=== PATIENT | female | born 1990 | race Caucasian/White ===

== ENCOUNTER 2016-11-20 08:57 | Emergency (ER) | payer MEDICAID ==
[~2016-11-20] VITALS: Ht 157.5 cm; Wt 103.3 kg
[2016-11-20] MEDS ORDERED: KETOROLAC 60 MG/2 ML (TORADOL) VIAL IM ONE (09:30)
[2016-11-20 09:47] VITALS: BP 116/58
== END 2016-11-20 09:50 | disposition home or self-care (01) ==
LOC: ED 08:59
DX: L01.01 Non-bullous impetigo (principal); L28.0 Lichen simplex chronicus; J20.9 Acute bronchitis, unspecified; F41.9 Anxiety disorder, unspecified
CPT/HCPCS: 96372; 99283; J1885

== ENCOUNTER 2017-02-08 17:39 | Emergency (ER) | payer MEDICAID ==
[~2017-02-08] VITALS: Ht 157.5 cm; Wt 104.1 kg
[~2017-02-08 17:39] MED LIST: AC325T PO; ACAM333T8 PO; ACET325T38 PO; ALB0.5V INH; ALBU6.7H INH; ALPR2TAB PO; AMPH20TA2 PO; ASPI-158 PO; AZIT250T5 PO; BENZ-22 PO; CEFD300C; CEFD300C PO; CEPH-331 PO; CEPH-507 PO; CEPH500C PO; CODE118S2 PO; DOXY100T41 PO; FLUO40CA PO; FLX20C; HALO5TAB PO; HYDR-33; HYDR-3702 PO; IBP200T PO; IBUP-1772 PO; INDO50CA; INDO50CA PO; LIRA3PEN SQ; LITH300C; LITH450T14 PO; LORA-404; LORA0.5T PO; LTH150C PO; LTH450TCR PO; LURA40TA PO; MINO100C2; MPR22TI TOP; NAPR550T PO; NORG1TAB14 PO; OLAN10TA17 PO; OLAN1CAP5; OXC5T PO; OXYC10TA7 PO; PNV1TABL9 PO; PRCD5U PO; PRD50T GT; PRED20TA PO; TR1C15 TOP; TRAZ100T92; TRAZ150T72 PO; [UNRECOGNIZED DRUG - OTHER]; [UNRECOGNIZED DRUG - OTHER]
--- NOTE | 2017-02-08 17:56 | NUR ---
pt states unable to urinate, went to the bathroom in our lobby
[2017-02-08 18:07] LABS: BASOPHILS % (AUTO) 0 % (0-2); EOSINOPHILS % (AUTO) 0 % (0-4); LYMPHOCYTES # (AUTO) 2.5 X10^3; MEAN CORPUSCULAR HEMOGLOBIN 30.3 PG (26.0-34.0); MEAN CORPUSCULAR HGB CONC 34.8 g/dL (31.0-37.0); MEAN CORPUSCULAR VOLUME 87 FL (80-100); MEAN PLATELET VOLUME 9.7 FL (6.0-9.5); MONOCYTES % (AUTO) 9 % (3-11); NEUTROPHILS # (AUTO) 7.2 X10^3; NEUTROPHILS % (AUTO) 67 % (51-67); PLATELET COUNT 273 10^3uL (150-450); WHITE BLOOD COUNT 10.77 10^3uL (4.0-11.0)
[2017-02-08] MEDS ORDERED: HALOPERIDOL 5 MG/ML (HALDOL) 1 ML AMP IM ONE (18:10)
[2017-02-08] MEDS ORDERED: LORazepam 2 MG/ML (ATIVAN) 1 ML VIAL IM ONE (18:10)
[2017-02-08 18:22] LABS: ALBUMIN 3.6 g/dL (3.4-5.0); ALKALINE PHOSPHATASE 134 U/L (38-126); ANION GAP 15.3 MEQ/L (3-15); BUN/CREATININE RATIO 18 (10-20); CALCULATED IONIZED CALCIUM 4.3 mg/dL (3.8-4.6); TOTAL PROTEIN 6.6 g/dL (6.4-8.5)
--- NOTE | 2017-02-08 18:42 | NUR ---
asks for blanket
[2017-02-08] MEDS ORDERED: LORA1TAB PO (18:47)
[2017-02-08 18:48] VITALS: BP 125/77
[2017-02-08 18:53] LABS: BILIRUBIN,URINE Negative (Negative); COLOR,URINE Yellow; GLUCOSE, URINE (UA) Negative (Negative); LEUKOCYTE ESTERASE ,URINE Negative (Negative); PH,URINE 7.5 (5.0 - 8.0); UROBILINOGEN,URINE 0.2 mg/dL (0.2-1.0)
[2017-02-08 18:54] LABS: CLARITY,URINE Slightly Cloudy
[2017-02-08 19:05] LABS: AMPHETAMINE SCREEN, URINE Positive (Negative); CANNABINOID SCREEN, URINE Negative (Negative); METHAMPHETAMINE SCREEN URINE S POSITIVE (NEGATIVE); OPIATE SCREEN URINE Negative (Negative); PROPOXYPHENE STAT NEGATIVE (NEGATIVE)
== END 2017-02-08 18:51 | disposition home or self-care (01) ==
LOC: ED 17:40
DX: F43.12 Post-traumatic stress disorder, chronic (principal); F41.1 Generalized anxiety disorder
CPT/HCPCS: 36415; 80053; 80307; 81003; 84443; 84703; 85025; 86140; 96372; 99283; G0480; J1630; J2060; 80320; 80329

== ENCOUNTER 2017-02-20 20:32 | Emergency (ER) | payer MEDICAID ==
[~2017-02-20] VITALS: Ht 157.5 cm; Wt 90.9 kg
[~2017-02-20 20:32] MED LIST changes: -CLON1TAB27 PO
--- NOTE | 2017-02-20 20:45 | NUR ---
Pt's mom is here and in the room with pt, she states that the pt just got out of [facility] on Monday
--- NOTE | 2017-02-20 21:02 | NUR ---
Pt's mom is in the room with her at this time, she continues to cry and at times become angry, pt has pulled out her IV, bleeding is controlled, pt then leaves the ED, and goes out the front entrance of the ED. PD was called, pt's mom went out to try and bring pt back in, which she does, pt back in the room and given a dose of Haldol, pt states "Haldol doesn't work for me", ask pt what works, and she stated "Thorazine".
[2017-02-20] MEDS: HALOPERIDOL 5 MG/ML (HALDOL) 1 ML AMP IM ONE ×2 (21:15→21:50)
--- NOTE | 2017-02-20 21:26 | NUR ---
Pt states "I'm not suicidal, I just have suicidal thoughts, I don't feel right, and I just want to feel right". Pt is pacing the floor in the room, crying, and loudly converses with her mom.
--- NOTE | 2017-02-20 21:30 | NUR ---
Pt leaves the room out the front entrance, her mom goes after her, the PD was called to come and look for pt, pt comes back into the lobby of her own accord with her mom, back into the room.
[2017-02-20] MEDS ORDERED: CLON1TAB27 PO (21:33)
[2017-02-20 21:37] LABS: BASOPHILS % (AUTO) 0 % (0-2); EOSINOPHILS % (AUTO) 0 % (0-4); LYMPHOCYTES # (AUTO) 4.5 X10^3; MEAN CORPUSCULAR HEMOGLOBIN 29.8 PG (26.0-34.0); MEAN CORPUSCULAR HGB CONC 34.7 g/dL (31.0-37.0); MEAN CORPUSCULAR VOLUME 86 FL (80-100); MEAN PLATELET VOLUME 9.9 FL (6.0-9.5); MONOCYTES # (AUTO) 1.1 X10^3; MONOCYTES % (AUTO) 6 % (3-11); NEUTROPHILS # (AUTO) 12.1 X10^3; NEUTROPHILS % (AUTO) 68 % (51-67); PLATELET COUNT 294 10^3uL (150-450); WHITE BLOOD COUNT 17.81 10^3uL (4.0-11.0)
[2017-02-20 21:44] LABS: ALBUMIN 3.8 g/dL (3.4-5.0); ALKALINE PHOSPHATASE 151 U/L (38-126); ANION GAP 15.7 MEQ/L (3-15); BUN/CREATININE RATIO 22 (10-20); CALCULATED IONIZED CALCIUM 3.9 mg/dL (3.8-4.6)
[2017-02-20 21:45] LABS: AMPHETAMINE SCREEN, URINE Negative (Negative); CANNABINOID SCREEN, URINE Negative (Negative); METHAMPHETAMINE SCREEN URINE S NEGATIVE (NEGATIVE); OPIATE SCREEN URINE Negative (Negative); PROPOXYPHENE STAT NEGATIVE (NEGATIVE)
--- NOTE | 2017-02-20 21:45 | NUR ---
RN in room with pt, she is pacing the room, RN explains that if she continues to leave, then the Police will be called, and or she will be placed in restraints at that time to keep pt from harming herself. Pt states "my mind is just racing and I want something to help calm me down." RN did let Dr. Jones know of the situation.
--- NOTE | 2017-02-20 21:50 | NUR ---
PD here, RN did update the police officers on current situation
--- NOTE | 2017-02-20 21:59 | NUR ---
pt out of bed, she is pacing around the bed, yelling at times at her mom, states that "I can't sit still".
[2017-02-20] MEDS: LORazepam 2 MG/ML (ATIVAN) 1 ML VIAL IM ONE (22:08)
--- NOTE | 2017-02-20 22:50 | NUR ---
Dr. Jones spoke with Darlene at [facility] for possible behavioral health placement
--- NOTE | 2017-02-20 22:55 | NUR ---
Pt agrees to go to [facility] voluntarily, pt is cooperative at this time.
--- NOTE | 2017-02-20 23:04 | NUR ---
pt awake, lying in bed, she moans and cries at times stating "I want to leave", she also stated that she wants some thing to help with the "ticking" feeling she feels.
[2017-02-20 23:31] VITALS: BP 132/70
== END 2017-02-20 23:42 ==
LOC: ED 20:32
DX: F25.9 Schizoaffective disorder, unspecified (principal); F32.9 Major depressive disorder, single episode, unspecified; F17.210 Nicotine dependence, cigarettes, uncomplicated
CPT/HCPCS: 36415; 80053; 80307; 85025; 96372; 99283; G0480; J1630; J2060; 80320; 80329

== ENCOUNTER → 2017-02-20 | Outpatient (CLI) | payer MEDICAID ==
[~2017-02-20] MED LIST changes: +CLON1TAB27 PO; +LORA1TAB PO
== END ==
LOC: EMS 20:22
PROVIDERS: ATTEND Emergency Medicine
DX: R45.851 Suicidal ideations (principal); F41.9 Anxiety disorder, unspecified; F32.9 Major depressive disorder, single episode, unspecified